=== PATIENT | female | born 1960 | race African-American/Black ===

== ENCOUNTER → 2019-06-14 | Outpatient (CLI) | payer OTHER ==
[~2019-06-14] VITALS: Ht 160 cm; Wt 79.4 kg
[~2019-06-14] MED LIST: ACYCLOVIR 400400 MG PO; ALEVE220 MG PO; ALLEGRA180 MG PO; ESTRADIOL 1 MG T1 M1 PO; LISINOPRIL20 MG PO; MAGOX 400400 MG PO; MEDROLDOSEPACK PO; MOBIC15 MG PO; NIFEDICAL XL30 MG PO; POTASSIUM99 M1 PO; PROTONIX40 M2 PO; VITAMIN B-121000 MCG PO; VITAMIN D3400 UNIT PO
--- NOTE | ~2019-06-14 | HPC ---
[facility] [place] [address] PAIN MANAGEMENT CONSULTATION Name: MARGARITAPRIYANK HUERTA [facility] #: [facility] [id number] Admission: 06/14/19 Attend Phys: Junior Collins MD Discharge: Date of : 62 Report #: [id number] THIS REPORT FOR: //name// CC: Melani Collins DATE OF SERVICE: 06/14/2019 CHIEF COMPLAINT: Low back pain and leg pain. HISTORY OF PRESENT ILLNESS: The patient is a 58-year-old female who has been referred to the pain clinic for evaluation of back and leg pain. The patient has been experiencing pain, which involves her low back and radiates down into both legs. The left leg and posterior thigh is most problematic. Pain has been ongoing for the last 3 months. She describes it as constant, aching, stabbing and rates it as a 7/10. It is exacerbated with activity, such as walking. Heat and medications have been helpful. She has seen a chiropractor. She has been given a schedule for possible regimen of chiropractic treatments. The patient has tried to keep active. She has undergone physical therapy. Notes that use of nonsteroidal anti-inflammatory medications like Aleve can sometimes be helpful. She does sleep on a heating pad because of the pain. Activities such as badminton and bending and twisting can exacerbate the back pain. She has been using a back brace, which she purchased from [employer]. It has natalia in it. Has been ____ to help with back discomfort. The patient notes that there is pain in her left butt. Particularly notes increased pain and discomfort when she is bending. Notes that there is pain that radiates down into her hamstrings. Has had some discomfort, which radiates down into the level of her lower leg. Describes as continuous, aching, pulling, stabbing, and tender. Rates it as a 7/10 today. ALLERGIES: SULFA. CURRENT MEDICATIONS: Naprosyn 220 mg 12 hours, magnesium oxide 400 mg, potassium 99 mg, vitamin D3 400 units, Estrace 1 mg, Zovirax 400 mg b.i.d., vitamin B12 1000 mg, lisinopril 20 mg b.i.d., nifedipine XL 30 mg, and Kylee 180 mg. PAST MEDICAL HISTORY: 1. Anemia. 2. Hypertension. 3. Esophageal reflux. 4. Seasonal allergies. PAST SURGICAL HISTORY: 1. Rectal fistula. 2. Broken leg and forearm. [facility] [address] [place] [address] PAIN MANAGEMENT CONSULTATION Name: MARGARITA PRIYANK MORALES Room #: REG [facility]#: [id number] Admission: 06/14/19 Attend Phys: Junior Collins MD Discharge: Date of : 62 Report #: [id number] 3. Right ankle surgery in 03/2014. 4. Hysterectomy in 2006. 5. Cholecystectomy in 02/2016. 6. Right wrist surgery. 7. Tonsillectomy was in 2009. 8. Tubal ligation. 9. . 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 She is working at this juncture. REVIEW OF SYSTEMS: Generally good health, weight change, sore throat, shortness of breath when lying flat. Rectal bleeding/blood in stool, frequent urination, lightheadedness, dizziness, numbness and tingling sensation. LABORATORY DATA: No laboratory values are available at the time of our interview. PAIN CLINIC ASSESSMENT AND PQRS: 1. The patient is not being treated for osteoarthritis, does have some knee pain. The patient is not being treated for rheumatoid arthritis. 2. Height 5 feet 3 inches, weight 175 pounds, BMI is 31.0. 3. VITAL SIGNS: Blood pressure 139/77, pulse 62, respiratory rate 16, room air saturation is 100%. 4. Pain intensity, 7/10. 5. Fall risk. The patient has not fallen in the last 3 months. 6. Blood thinner. The patient is not on a blood thinning medication. 7. Hypertension. The patient is being treated for hypertension. 8. Opioids greater than 6 weeks. 9. Risk assessment tool, low for opioid use. 10. Functional assessment tool . 11. Recreational drug use. The patient denies use of recreational drugs. 12. Tobacco: The patient denies use of tobacco. 13. Alcohol: The patient occasionally drinks alcoholic beverages. PHYSICAL EXAMINATION: GENERAL: The patient is a well-developed, well-nourished black female, appears her stated age. She is alert and oriented x 3. Her affect is appropriate. Speech is fluent. HEENT: Normocephalic, atraumatic. Extraocular eye muscles intact. Sclerae nonicteric. Mucous membranes are moist. NECK: Without adenopathy or JVD. HEART: Regular rate. S1, S2. LUNGS: Clear to auscultation. ABDOMEN: Nontender. EXTREMITIES: Upper extremity muscle strength judged to be 5/5 for the major muscle groups in the upper extremity. The patient without significant [facility] [address] [place] [address] PAIN MANAGEMENT CONSULTATION Name: PRIYANK PAZ Room #: REG [facility]#: [id number] Admission: 06/14/19 Attend Phys: Junior Collins MD Discharge: Date of : 62 Report #: [id number] scoliosis, kyphosis, or lordosis. The patient is experiencing pain and discomfort in lower portion of her back. Has some pain and discomfort in the right thoracic area at approximately T10-T11 midline. The patient has some pain in the right buttocks and has pain that is radiating down the left leg down the left leg. The patient has pain and discomfort with sensory changes in the L5-S1 dermatomal distribution. IMPRESSION: 1. Lumbar radiculopathy with L5-S1 distribution on the left with sensory changes, weakness, and positive straight leg raise. 2. Anemia. 3. Hypertension. 4. Esophageal reflux. 5. Seasonal allergies RECOMMENDATIONS: We discussed treatment options with the patient. The patient is having clinical findings consistent with L5-S1 nerve root irritation involving the left leg with weakness, sensory changes and pain in the posterior leg with positive straight leg raise. We will proceed with a lumbar epidural steroid injection after the patient has been pre-certified by her insurance carrier. We would like to thank you for letting us participate in her care. We hope she continues to improve. By: [id number] Junior Collins MD /nt
[2019-06-14 09:53] VITALS: BP 139/77
--- NOTE | 2019-06-14 10:15 | NUR ---
Pain Clinic Assessment: 1. History of Osteoarthritis: NO History of Rheumatoid Arthritis: NO 2. Height: 5 ft. 3 in. 160.0 cm. Weight: 175.0 lb. oz. 79.380 kg. Patient's BMI: 31.0 3. Vital Signs: BP: 139/77 Pulse: 62 Resp: 16 Temp: 02 Sat: 100 ECG Mon: 4. Pain Intensity: 7 5. Fall Risk: Dizziness: Y Needs help standing or walking: N Fallen in the last 3 months: N Fall risk comments: 6. Patient on Blood Thinner: None 7. History of Hypertension: Y 8. Opioid Therapy greater than 6 weeks: N Opiate Contract Signed: 9. Risk Assessment Tool Provided: 10. Functional Assessment Tool: 11. Recreational Drug Use: Never Drug Type: Tobacco Use: Never Smoker Tobacco Type: Amount or Packs/day: How Many Years: Alcohol Use: Yes Frequency: Weekly Quant:
== END ==
LOC: PAIN 06:53
DX: M54.16 Radiculopathy, lumbar region (principal); M79.669 Pain in unspecified lower leg; I10 Essential (primary) hypertension; K21.9 Gastro-esophageal reflux disease without esophagitis; D64.9 Anemia, unspecified; J30.2 Other seasonal allergic rhinitis; Z88.2 Allergy status to sulfonamides; Z79.899 Other long term (current) drug therapy

== ENCOUNTER → 2019-06-28 | Outpatient (CLI) | payer OTHER ==
[~2019-06-28] VITALS: Ht 160 cm; Wt 86.2 kg
[2019-06-28 12:36] VITALS: BP 145/58
--- NOTE | 2019-06-28 12:39 | NUR ---
Pain Clinic Assessment: 1. History of Osteoarthritis: NO History of Rheumatoid Arthritis: NO 2. Height: 5 ft. 3 in. 160.0 cm. Weight: 190.0 lb. oz. 86.184 kg. Patient's BMI: 33.7 3. Vital Signs: BP: 145/58 Pulse: 80 Resp: 16 Temp: 02 Sat: 100 ECG Mon: 4. Pain Intensity: 5 5. Fall Risk: Dizziness: N Needs help standing or walking: N Fallen in the last 3 months: N Fall risk comments: 6. Patient on Blood Thinner: None 7. History of Hypertension: Y 8. Opioid Therapy greater than 6 weeks: N Opiate Contract Signed: 9. Risk Assessment Tool Provided: 0-low 10. Functional Assessment Tool: 11. Recreational Drug Use: Never Drug Type: Tobacco Use: Never Smoker Tobacco Type: Amount or Packs/day: How Many Years: Alcohol Use: Yes Frequency: Quant:
== END | disposition home or self-care (01) ==
LOC: PAIN 11:03
DX: M54.16 Radiculopathy, lumbar region (principal); G89.29 Other chronic pain; Z88.2 Allergy status to sulfonamides; Z79.899 Other long term (current) drug therapy; Z98.890 Other specified postprocedural states

== ENCOUNTER → 2019-09-22 | Outpatient (CLI) | payer OTHER ==
[~2019-09-22] VITALS: Ht 160 cm; Wt 86.2 kg
[2019-09-22 10:34] VITALS: BP 134/75
--- NOTE | 2019-09-22 10:35 | NUR ---
Pain Clinic Assessment: 1. History of Osteoarthritis: KNEE History of Rheumatoid Arthritis: DENIES 2. Height: 5 ft. 3 in. 160.0 cm. Weight: 190.0 lb. oz. 86.184 kg. Patient's BMI: 33.7 3. Vital Signs: BP: 134/75 Pulse: 67 Resp: 15 Temp: 02 Sat: 98 ECG Mon: 4. Pain Intensity: 7-8 5. Fall Risk: Dizziness: N Needs help standing or walking: N Fallen in the last 3 months: N Fall risk comments: 6. Patient on Blood Thinner: None 7. History of Hypertension: Y 8. Opioid Therapy greater than 6 weeks: N Opiate Contract Signed: 9. Risk Assessment Tool Provided: 0-low 10. Functional Assessment Tool: 11. Recreational Drug Use: Never Drug Type: Tobacco Use: Never Smoker Tobacco Type: Amount or Packs/day: How Many Years: Alcohol Use: Yes Frequency: Daily Quant: RUM 1 DRINK
--- NOTE | 2019-09-29 15:38 | HPC ---
[facility] [place] [address] [address] [place] [address] PAIN MANAGEMENT CONSULTATION Name: MARGARITA MORALESPRIYANK KRANTHI Room #: [facility] [id number] Admission: 09/22/19 Attend Phys: Junior Collins MD Discharge: Date of : 62 Report #: [id number] THIS REPORT FOR: //name// CC: Melani Collins DATE OF SERVICE: 09/22/2019 CHIEF COMPLAINT: The last epidural was helpful, but the pain has returned and is going down the left thigh and into leg. HISTORY: The patient is a 58-year-old female. She has been seen in the pain clinic because of lumbar radiculopathy. She underwent an epidural steroid injection at the last visit. She noticed greater than 50% improvement. She has been able to engage in activities of daily living with less discomfort. She describes the pain as aching and stabbing. Rates it as 7-8/10 at this juncture. She has had chiropractic treatment in the past. She has undergone physical therapy. Use of a heating pad still is somewhat efficacious. She has been using a back brace. She continues to have pain, which is in the low back and radiates down into her left leg to the level of the knee and below. Forward bending to lift up items and movement can cause some tingling down into her leg. She has tried nonsteroidal anti-inflammatory medications. ALLERGIES: SULFA. CURRENT MEDICATIONS: Naprosyn 220 mg q. 12 hours, magnesium oxide 400 mg, potassium 99 mg, vitamin D3 400 units, Estrace 1 mg, Zovirax 400 mg b.i.d., vitamin B12 1000 mg, lisinopril 20 mg b.i.d., nifedipine XL 30 mg and Kylee 180 mg. PAIN CLINIC ASSESSMENT AND PQRS: 1. The patient is not being treated for osteoarthritis or rheumatoid arthritis. She does complain of knee pain. She is not being treated for rheumatoid arthritis. 2. Height 5 feet 3 inches, weight 190 pounds, BMI is 33.7. 3. Vital Signs: Blood pressure 134/75, pulse 67, respiratory rate 15, room air saturation is 98%. 4. Pain intensity 7-8. 5. Fall risk. The patient has not fallen in the last 3 months. 6. Blood thinner. The patient is not on a blood thinning medication. 7. Hypertension. The patient is being treated for hypertension. 8. Opioids greater than 6 weeks. The patient is not receiving opioid medication on a regular basis. 9. Risk for opioid use is low. 10. Functional assessment tool was 12/28. 11. Recreational drug use: [place] [address] PAIN MANAGEMENT CONSULTATION Name: PRIYANK PAZ [facility] [id number] Admission: 09/22/19 Attend Phys: Junior Collins MD Discharge: Date of : 62 Report #: [id number] 12. Tobacco: The patient denies. 13. Alcohol: The patient occasionally drinks alcoholic beverages. PHYSICAL EXAMINATION: GENERAL: The patient is a well-developed, well-nourished black female, appears her stated age. She is alert and oriented x 3. Her affect is appropriate. Speech is fluent. HEENT: Normocephalic, atraumatic. Extraocular eye muscles intact. Sclerae nonicteric. Mucous membranes are moist. NECK: Without adenopathy or JVD. HEART: Regular rate. ABDOMEN: Nontender. EXTREMITIES: Upper extremity muscle strength judged to be 5/5 for the major muscle groups in the upper extremity. The patient has pain and discomfort in lower portion of her back without scoliosis, kyphosis or lordosis. The patient has pain, which is radiating down to the posterior portion of her left leg in the L5-S1 dermatomal distribution with sensory changes. Positive straight leg raise. IMPRESSION: 1. Lumbar radiculopathy involving the L5-S1 dermatomal distribution on the left leg with sensory changes, weakness and positive straight leg. 2. Anemia. 3. Hypertension. 4. Gastroesophageal reflux. 5. Seasonal allergies. RECOMMENDATIONS: We discussed treatment options with the patient. At this juncture, the patient did gleaned greater than 50% benefit from the last injection. She has noted some continued pain and discomfort with activities of daily living. Continues to do her physical therapy exercises. Continues to use nonsteroidal anti-inflammatory medications. We would recommend that the patient proceed with a second epidural steroid injection to help continue her progress of pain relief. She is aware of the possible complications, which could include trauma to the nerve, bleeding, increased pain and she will return to the Pain Clinic after being pre-certified by her insurance carrier to undergo an injection to help decrease her pain and discomfort. We would like to thank you for letting us participate in her care. We hope she continues to improve. <ELECTRONICALLY SIGNED> By: Junior Collins MD 09/29/19 1538 [id number] Junior Collins MD /nt
== END ==
LOC: PAIN 06:47
DX: M54.16 Radiculopathy, lumbar region (principal); I10 Essential (primary) hypertension; D64.9 Anemia, unspecified; K21.9 Gastro-esophageal reflux disease without esophagitis; J30.2 Other seasonal allergic rhinitis; Z88.2 Allergy status to sulfonamides; Z79.899 Other long term (current) drug therapy

== ENCOUNTER → 2019-11-03 | Outpatient (CLI) | payer OTHER ==
[~2019-11-03] VITALS: Ht 160 cm; Wt 85.2 kg
[2019-11-03 09:39] VITALS: BP 127/75
--- NOTE | 2019-11-03 09:45 | NUR ---
Pain Clinic Assessment: 1. History of Osteoarthritis: KNEE History of Rheumatoid Arthritis: DENIES 2. Height: 5 ft. 3 in. 160.0 cm. Weight: 187.8 lb. oz. 85.186 kg. Patient's BMI: 33.3 3. Vital Signs: BP: 127/75 Pulse: 58 Resp: 14 Temp: 02 Sat: 100 ECG Mon: 4. Pain Intensity: 5-6 5. Fall Risk: Dizziness: N Needs help standing or walking: N Fallen in the last 3 months: N Fall risk comments: 6. Patient on Blood Thinner: None 7. History of Hypertension: Y 8. Opioid Therapy greater than 6 weeks: N Opiate Contract Signed: 9. Risk Assessment Tool Provided: 0-low 10. Functional Assessment Tool: 11. Recreational Drug Use: Never Drug Type: Tobacco Use: Never Smoker Tobacco Type: Amount or Packs/day: How Many Years: Alcohol Use: Yes Frequency: Quant:
--- NOTE | 2019-11-07 14:24 | HPC ---
[facility] [address] [place] [address] PAIN MANAGEMENT CONSULTATION Name: MARGARITAPRIYANK HUERTA Room #: REG [facility].#: [id number] Admission: 11/03/19 Attend Phys: Junior Collins MD Discharge: Date of : 62 Report #: [id number] THIS REPORT FOR: //name// CC: Melani Collins DATE OF SERVICE: 11/03/2019 CHIEF COMPLAINT: Return of low back pain. It is worse on the left than the right. HISTORY: The patient is a 59-year-old female who has been seen in the pain clinic because of pain and discomfort. She has been experiencing pain radiating down into her legs. Finds that the left side is more problematic than the right. She rates it as a 5-6/10. Describes it as aching, stabbing and constant. Pain is exacerbated when she is lying down. Sitting and walking can be problematic as well. Has found some benefit with use of heat. Has continued to take medications to help contain the pain. She has undergone epidural steroid injections in the past and gleaned greater than 50% improvement. She has returned today with the hopes of undergoing another epidural steroid injection to build on the improvement she has received in the past. ALLERGIES: SULFA. CURRENT MEDICATIONS: Naprosyn 220 mg 1 p.o. q.12 hours, magnesium oxide 400 mg, potassium 99 mg, vitamin D3 400 units, Estrace 1 mg, Zovirax 400 mg b.i.d., vitamin B12 1000 mg, lisinopril 20 mg b.i.d., nifedipine XL 30 mg, and Kylee 180 mg. PAIN CLINIC ASSESSMENT AND PQRS: 1. The patient is not being treated for osteoarthritis or rheumatoid arthritis. She does have knee pain. She is having some back pain. 2. Height 5 feet 3 inches, weight 187 pounds, BMI is 33.3. 3. Vital signs: Blood pressure 127/75, pulse 58, respiratory rate 14, room air saturation is 100%. 4. Pain intensity 5-6/10. 5. Fall history: The patient has not fallen in the last 3 months. 6. Blood thinner. The patient is not on a blood thinning medication. 7. Hypertension. The patient is being treated for hypertension. 8. Opioids greater than 6 weeks. The patient receives medications from her primary. 9. Risk assessment tool, low for opioid use. 10. Functional assessment tool . 11. Recreational drug use: The patient denies. 12. Tobacco: The patient does not smoke. 13. Alcohol: The patient occasionally drinks alcoholic beverage. [address] [address] PAIN MANAGEMENT CONSULTATION Name: PRIYANK PAZ Room #: REG [facility]#: [id number] Admission: 11/03/19 Attend Phys: Junior Collins MD Discharge: Date of : 62 Report #: [id number] PHYSICAL EXAMINATION: GENERAL: The patient is a well-developed, well-nourished black female, appears her stated age. She is alert and oriented x 3. Her affect is appropriate. Speech is fluent. HEENT: Normocephalic, atraumatic. Extraocular eye muscles intact. Sclerae nonicteric. Mucous membranes are moist. NECK: Without adenopathy or JVD. HEART: Regular rate. ABDOMEN: Nontender. EXTREMITIES: Upper extremity muscle strength judged to be 5/5 for the major muscle groups in the upper extremity. The patient has pain and discomfort in the lower portion of her back. She is without scoliosis, kyphosis or lordosis. The patient does have some pain that is radiating down the posterior portion of her back into her left leg and more problematic in the L5-S1 dermatomal distribution. Positive straight leg raise on the right side. IMPRESSION: 1. Lumbar radiculopathy involving the L5-S1 dermatomal distribution on the right and left with more problematic pain on the left today. She has sensory changes and some weakness. 2. Anemia. 3. Hypertension. 4. Gastroesophageal reflux. 5. Seasonal allergies. RECOMMENDATIONS: We discussed treatment options with the patient. Risks and benefits of an epidural steroid injection were discussed. The possible complications of the procedure, which could include, but are not limited to infection, worsening pain, no improvement in pain were discussed and the patient elects to proceed. PROCEDURE NOTE: The patient was taken to the procedure area. She was then assisted in getting on the examination table. Her back was sterilely prepped with a Betadine solution. A 0.25% bupivacaine was infiltrated in the L5-S1 area. A 17-gauge Tuohy with loss of resistance technique was used to gain access to the epidural space. There was no CSF, heme or paresthesia. Total of 80 mg Depo-Medrol, 40 mg triamcinolone and 2 mL of 0.25% bupivacaine was injected. The patient tolerated the procedure well. There were no complications. Her pain decreased to 0 at the time of discharge. A total of 14 seconds fluoroscopy time was used. [address] [address] PAIN MANAGEMENT CONSULTATION Name: PRIYANK PAZ Room #: REG [facility].#: [id number] Admission: 11/03/19 Attend Phys: Junior Collins MD Discharge: Date of : 62 Report #: [id number] We would like to thank you for letting us participate in her care. We hope she continues to improve. <ELECTRONICALLY SIGNED> By: Junior Collins MD 11/07/19 1424 [id number] [id number] Junior Collins MD /[facility]
== END | disposition home or self-care (01) ==
LOC: PAIN 06:42
DX: M54.16 Radiculopathy, lumbar region (principal); D64.9 Anemia, unspecified; I10 Essential (primary) hypertension; K21.9 Gastro-esophageal reflux disease without esophagitis; Z88.2 Allergy status to sulfonamides; Z79.899 Other long term (current) drug therapy; Z98.890 Other specified postprocedural states